=== PATIENT | female | born 1975 | race Caucasian/White ===

== ENCOUNTER 2022-05-04 10:27 | Outpatient (CLI) | payer BC, SELFPAY ==
--- NOTE | 2022-05-04 10:45 | CRLHL7_ITS ---
For Patients: As a result of the Century Cures Act, medical imaging exams and procedure reports are released immediately into your electronic medical record. You may view this report before your referring provider. If you have questions, please contact your health care provider. BILATERAL SCREENING MAMMOGRAM WITH COMPUTER-AIDED DETECTION AND TOMOSYNTHESIS TECHNIQUE: CC and MLO views were obtained. These mammographic images have been obtained using full-field digital technique. These mammographic images were interpreted with the benefit of computer-aided detection. Breast Tomosynthesis was used in this interpretation. COMPARISON FILM: 04/21/21, 05/16/20, 07/18/18. FINDINGS: There are scattered areas of fibroglandular density IMPRESSION: There is no radiographic evidence for malignancy. ASSESSMENT: BI-RADS Category 1: Negative RECOMMENDATION: Routine screening mammogram in 1 year. A lay language report of this examination will be provided to the patient. Ashu Aberu M.D. Diagnostic Radiologist [email or web address] JAMA/Dictated by: Ashu Abreu MD @ 05/04/2022 11:32:00 AM (Electronically Signed)
== END 2022-05-04 10:28 | disposition home or self-care (01) ==
PROVIDERS: PCP Obstetrics & Gynecology; Visit Provider Obstetrics & Gynecology
DX: Z12.31 Encounter for screening mammogram for malignant neoplasm of breast (principal)
CPT/HCPCS: 77063; 77067

== ENCOUNTER 2022-05-25 13:54 | Outpatient (CLI) | payer BC, SELFPAY ==
[2022-05-25 17:45] LABS: Glucose* 87 mg/dL (60-115)
== END 2022-05-25 13:55 | disposition home or self-care (01) ==
PROVIDERS: PCP Obstetrics & Gynecology; Visit Provider Obstetrics & Gynecology
DX: Z01.419 Encounter for gynecological examination (general) (routine) without abnormal findings (principal)
CPT/HCPCS: 82947

== ENCOUNTER 2023-02-28 10:38 | Emergency (ER) | payer BC, SELFPAY ==
[2023-02-28 10:51] VITALS: BP 164/93; PULSE 94; RESP 18; TEMP 36.2; O2SAT 99; BMI 41.5
--- NOTE | 2023-02-28 11:03 | CRLHL7_ITS ---
For Patients: As a result of the Century Cures Act, medical imaging exams and procedure reports are released immediately into your electronic medical record. You may view this report before your referring provider. If you have questions, please contact your health care provider. INDICATION: REDNESS AND SWELLING COMPARISON: None. TECHNIQUE: A compression venous ultrasound exam was performed of the right lower extremity using garibay-scale imaging, color Doppler and spectral Doppler analysis. FINDINGS: Sonographic imaging of the right lower extremity demonstrates normal compressibility and color Doppler venous blood flow within the common femoral vein, deep femoral vein, and the proximal greater saphenous vein. Within the thigh, the femoral vein is patent and compressible. At a lower level, the popliteal and posterior tibial veins also show normal compressibility and color Doppler venous blood flow. Limited imaging of the contralateral groin demonstrates a normal spectral waveform and color Doppler venous blood flow within the left common femoral vein. IMPRESSION: Normal venous ultrasound exam. No evidence of deep vein thrombosis within the right lower extremity. Dictated by Ashu Abreu MD @ 02/28/2023 12:33:52 PM (Electronically Signed)
--- NOTE | 2023-02-28 11:05 | ED.GENADULT ---
HPI - General Adult General Time Seen by Provider: 11:05 Date Seen: 02/28/23 Chief complaint: Extremity Pain/Injury, Lower Stated complaint: Possible blood clot Time Seen by Provider: 02/28/23 11:03 Source: patient Mode of arrival: ambulatory Limitations: no limitations History of Present Illness HPI narrative: Martha is a 47-year-old female with no past medical history presents emerged department via private car with a low right lower extremity injury. Patient states she woke up this morning with some increased redness to her right lower extremity, there was some warmth to the area, patient denies any injury, pain started early in the morning last night. Yesterday she was just standing and cooking in the kitchen. Patient denies any shortness of breath or chest pain, no long travel, no history of any DVTs in the past. She did have some sweats last night but denies any fevers or chills. Patient has not taken anything for pain. Related Data Home Medications Medication Instructions Recorded Confirmed multivitamin 1 tab PO QAM 05/25/22 01/01/23 Previous Rx's Medication Instructions Recorded peg 3350-electrolytes 236 240 ml PO Q15M #4,000 mL 10/03/22 gram-22.74 gram-6.74 gram-5.86 gram solution (Golytely) peg 3350-electrolytes 236 240 ml PO ONCE #4,000 mL 10/29/22 gram-22.74 gram-6.74 gram-5.86 gram solution (Golytely) cefadroxil 500 mg capsule 500 mg PO BID 7 days #14 caps 02/28/23 Allergies Allergy/AdvReac Type Severity Reaction Status Date / Time latex Allergy Intermediate itching Verified 01/01/23 13:09 [facility] Medical History Conjunctivitis, right eye ?H10.9 - Unspecified conjunctivitis (ICD-10) Sore throat ?J02.9 - Acute pharyngitis, unspecified (ICD-10) Surgical History (Updated 05/25/22 @ 14:07 by Munira Barboza MD) History of mandibular surgery (1993) ?Z98.890 - Other specified postprocedural states (ICD-10) History of back surgery (10/2005) ?Z98.890 - Other specified postprocedural states (ICD-10) History of section ?Z98.891 - History of uterine scar from previous surgery (ICD-10) Family History (Updated 05/25/22 @ 14:09 by Munira Barboza MD) Father High cholesterol Prostate cancer High blood pressure Pancreatic cancer Aunt Breast cancer, Onset Age: 50 Social History (Updated 05/25/22 @ 14:12 by Munira Barboza MD) Narrative: Employed as financial counselor, with 2 children Highest level of school completed/degree received: Bachelor's degree Smoking Status: Never smoker How often do you have a drink containing alcohol: 4 or more times a week How many standard drinks containing alcohol do you have on a typical day: 5 or 6 How often do you have six or more drinks on one occasion: Daily or almost daily AUDIT-C Alcohol total score: 10 Non-prescribed substance use: denies use Are you now , , , , never or living with a partner: Social isolation score (0-1 are the most socially isolated patients): 1 Little interest or pleasure in doing things: several days Feeling down, depressed, or hopeless: several days Feel stressed/tense/nervous/anxious/difficulty sleeping: very much Do you think of yourself as: straight/heterosexual Gender Identity: female Are you currently sexually active: Yes Are you using contraception or practicing any form of control: Yes (Partner vasectomy) Exam Narrative: Exam Narrative: General: No obvious distress sitting comfortably HEENT: Pupils equal round reactive to light, extraocular muscles intact Neck: Supple full range of motion Heart: Normal sinus rhythm S1-S2 Lungs: Clear to auscultation bilateral Abdomen: Soft nontender Muscle skeletal: Posterior right lower extremity, area of erythema measuring 10 x 10 cm, slight warmth, no induration or fluctuance, tender to palpation Mild circumferential swelling, CMS intact Neuro: Alert awake and oriented x3 Const: Vital Signs, click to edit/add: Vital Signs - 24 hr 02/28/23 10:51 Temperature 97.1 F L Pulse Rate [Right Pulse Oximeter] 94 Respiratory Rate 18 Blood Pressure [Ri ght Upper Arm] 164/93 H Pulse Oximetry 99 Oxygen Delivery Me thod Room Air Course Course ED Course: 11:30 AM: AIDET performed, workup will include CBC, BMP and CRP, will obtain US lower extremity right, rule out DVT less likely or superficial thrombophlebitis, seems more related to cellulitis. Patient does not want anything for pain. Reevaluation(s) Time of Reevaluation #1: 12:42 Reevaluation #1: IMPRESSION: Normal venous ultrasound exam. No evidence of deep vein thrombosis within the right lower extremity. Imaging showed no evidence of deep vein thrombosis, labs showed a normal CBC, no leukocytosis, chronic anemia, CRP mildly elevated at 1.3, metabolic panel within normal limits, plan would be to treat with Duricef 500 mg b.i.d. over the next 7 days, she should continue with elevation compression to the area, follow-up with primary care provider. Vital Signs Vital signs: Initial Vital Signs Temperature 97.1 F L 02/28/23 10:51 Temperature Source Temporal Artery Scan 02/28/23 10:51 Pulse Rate 94 02/28/23 10:51 Respiratory Rate 18 02/28/23 10:51 Blood Pressure 164/93 H 02/28/23 10:51 Blood Pressure Mean 116 H 02/28/23 10:51 Blood Pressure Position Sitting 02/28/23 10:51 Pulse Oximetry 99 02/28/23 10:51 Oxygen Delivery Method Room Air 02/28/23 10:51 Vital Signs Temperature 97.1 F L 02/28/23 10:51 Pulse Rate 94 02/28/23 10:51 Respiratory Rate 18 02/28/23 10:51 Blood Pressure 164/93 H 02/28/23 10:51 Pulse Oximetry 99 02/28/23 10:51 Oxygen Delivery Method Room Air 02/28/23 10:51 Temperature 97.1 F L 02/28/23 10:51 Pulse Rate 94 02/28/23 10:51 Respiratory Rate 18 02/28/23 10:51 Blood Pressure 164/93 H 02/28/23 10:51 Pulse Oximetry 99 02/28/23 10:51 Oxygen Delivery Method Room Air 02/28/23 10:51 Medical Decision Making Lab Data Labs: Lab Results 02/28/23 Range/Units 11:26 WBC 8.53 (4.50-11.00) K/uL RBC 4.86 (4.00-5.20) m/uL Hgb 11.5 L (12.0-16.0) gm/dL Hct 38.0 (33.0-51.0) % MCV 78 L (80-100) fL MCH 24 L (26-34) pg MCHC 30 L (32-36) gm/dL RDW Coeff of Shelly 14.6 (11.5-15.5) % Plt Count 382 (140-440) K/uL Neut % (Auto) 72.0 (42.0-72.0) % Lymph % (Auto) 13.0 L (20-44) % Mcculloch % (Auto) 10.8 (0.0-11.0) % Eos % (Auto) 3.2 (0.0-7.0) % Baso % (Auto) 0.9 (0.0-3.0) % Neut # (Auto) 6.14 (1.7-7.0) K/uL Lymph # (Auto) 1.10 (0.90-2.90) K/uL Mcculloch # (Auto) 0.90 (0.00-0.90) K/UL Eos # (Auto) 0.27 (0.00-0.50) K/uL Baso # (Auto) 0.08 (0.00-0.30) K/uL Abs Immat Gran (auto) 0.01 (0.00-0.30) K/uL Imm/Tot Granulo (auto) 0.1 % Sodium 138 (135-149) mmol/L Potassium 3.9 (3.6-5.1) mmol/L Chloride 104 (96-114) mmol/L Carbon Dioxide 30 (20-32) mmol/L Anion Gap 4 L (7-15) mEq/L BUN 8 (5-24) mg/dL Creatinine 0.9 (0.5-1.5) mg/dL Estimated Creat Clear 75.95 Estimated GFR 80 ml/min Glucose 94 (60-115) mg/dL Calcium 9.3 (8.4-10.6) mg/dL C-Reactive Protein 1.3 H (0.5-1.0) mg/dL Discharge Plan Discharge Clinical Impression: Cellulitis of right lower limb Patient Disposition: Home, Self-Care Condition: Improved Instructions: Cellulitis (ED) Additional Instructions: Take Duricef 500 mg twice daily over the next 7 days. Keep area elevated, compression, follow up with primary care provider over the next 7-10 days, return if worsening symptoms. Activity Level: No Restrictions Prescriptions: New cefadroxil 500 mg capsule 500 mg PO BID 7 Days Qty: 14 0RF No Action multivitamin Tablet 1 tab PO QAM peg 3350-electrolytes [Golytely] 236-22.74-6.74 -5.86 gram recon soln 240 ml PO Q15M Qty: 4000 0RF Rx Instructions: until fecal effluent is clear peg 3350-electrolytes [Golytely] 236-22.74-6.74 -5.86 gram recon soln 240 ml PO ONCE Qty: 4000 0RF Rx Instructions: 4pm day prior to procedure. Drink 8oz every 15 minutes until 1/2 of solution is gone. 6 hours prior to procedure drink 8oz glass every 15 minutes until the remaining solution is gone. Follow Up/Referrals: Munira Barboza MD [Primary Care Provider] - Stand Alone Forms: [employer] Info Instructions
[2023-02-28 11:34] LABS: Basophils Absolute Auto 0.08 K/uL (0.00-0.30); Basophils Percent Auto 0.9 % (0.0-3.0); Eosinophils Absolute Auto 0.27 K/uL (0.00-0.50); Eosinophils Percent Auto 3.2 % (0.0-7.0); Hemoglobin* 11.5 gm/dL (12.0-16.0); Immature Granulocytes Abs Auto 0.01 K/uL (0.00-0.30); Immature Granulocytes Pct Auto 0.1 %; Mean Corpuscular HGB Conc 30 gm/dL (32-36); Mean Corpuscular Hemoglobin 24 pg (26-34); Mean Corpuscular Volume 78 fL (80-100); Monocytes Percent Auto 10.8 % (0.0-11.0); Neutrophils Absolute Auto 6.14 K/uL (1.7-7.0); Platelet Count* 382 K/uL (140-440); RDW Coefficient of Variation % 14.6 % (11.5-15.5); Red Blood Count 4.86 m/uL (4.00-5.20); White Blood Count* 8.53 K/uL (4.50-11.00)
[2023-02-28 11:45] LABS: Slide Review Reflex No
[2023-02-28 11:54] LABS: Chloride* 104 mmol/L (96-114); Potassium* 3.9 mmol/L (3.6-5.1); Sodium* 138 mmol/L (135-149)
[2023-02-28 11:57] LABS: Anion Gap 4 mEq/L (7-15); Blood Urea Nitrogen* 8 mg/dL (5-24); Carbon Dioxide* 30 mmol/L (20-32); Creatinine* 0.9 mg/dL (0.5-1.5); Est. Creatinine Clearance* 75.95; Estimated Glomerular Filt Rate 80 ml/min
[2023-02-28 11:58] LABS: Calcium* 9.3 mg/dL (8.4-10.6); Glucose* 94 mg/dL (60-115)
[2023-02-28 12:00] LABS: C Reactive Protein* 1.3 mg/dL (0.5-1.0)
[2023-02-28] MEDS: cefTRIAXone 1 GM VIAL IM (13:05)
[2023-02-28] MEDS: LIDOCAINE 1% 5 ml (pf) 5 ML VIAL 2.1 ML IM (13:06)
== END 2023-02-28 13:28 | disposition home or self-care (01) ==
PROVIDERS: Emergency Provider Student in an Organized Health Care Education/Training Program; PCP Obstetrics & Gynecology
DX: L03.115 Cellulitis of right lower limb (principal)
CPT/HCPCS: 36415; 80048; 85025; 86140; 93971; 96372; 99283; 99284; J0696

== ENCOUNTER 2023-05-27 12:51 | Outpatient (CLI) | payer BC, SELFPAY | END 2023-05-27 12:52 | disposition home or self-care (01) | LOC: LKVREF 12:53 | PROVIDERS: PCP Obstetrics & Gynecology; Visit Provider Physician Assistant | DX: Z01.419 Encounter for gynecological examination (general) (routine) without abnormal findings (principal); E66.9 Obesity, unspecified; Z13.1 Encounter for screening for diabetes mellitus; Z13.6 Encounter for screening for cardiovascular disorders | CPT/HCPCS: 80061; 82947 ==

== ENCOUNTER 2023-06-06 15:28 | Outpatient (CLI) | payer BC, SELFPAY ==
--- NOTE | 2023-06-06 15:40 | CRLHL7_ITS ---
For Patients: As a result of the Century Cures Act, medical imaging exams and procedure reports are released immediately into your electronic medical record. You may view this report before your referring provider. If you have questions, please contact your health care provider. BILATERAL SCREENING MAMMOGRAM WITH COMPUTER-AIDED DETECTION AND TOMOSYNTHESIS TECHNIQUE: CC and MLO views were obtained. These mammographic images have been obtained using full-field digital technique. These mammographic images were interpreted with the benefit of computer-aided detection. Breast Tomosynthesis was used in this interpretation. COMPARISON FILM: 05/04/22, 04/21/21, 04/15/20. FINDINGS: There are scattered areas of fibroglandular density IMPRESSION: There is no radiographic evidence for malignancy. ASSESSMENT: BI-RADS Category 1: Negative RECOMMENDATION: Routine screening mammogram in 1 year. A lay language report of this examination will be provided to the patient. Ashu Abreu M.D. Diagnostic Radiologist [email or web address] JAMA/Dictated by: Ashu Abreu MD @ 06/11/2023 1:10:00 PM (Electronically Signed)
== END 2023-06-06 15:29 | disposition home or self-care (01) ==
LOC: MAMMO 15:29
PROVIDERS: PCP Obstetrics & Gynecology; Visit Provider Physician Assistant
DX: Z12.31 Encounter for screening mammogram for malignant neoplasm of breast (principal)
CPT/HCPCS: 77063; 77067

== ENCOUNTER 2024-01-02 09:13 | Outpatient (CLI) | payer OTHER, SELFPAY ==
--- NOTE | 2024-01-02 09:42 | W.ANESCHARGE ---
Anesthesia Charges Start Date/Time Anesthesia Start Date: 01/02/24 Anesthesia Start Time: 10:00 Stop Date/Time Anesthesia Stop Date: 01/02/24 Anesthesia Stop Time: 10:32
--- NOTE | 2024-01-02 10:36 | W.ANESCHARGE ---
Anesthesia Charges Start Date/Time Anesthesia Start Date: 01/02/24 Anesthesia Start Time: 10:00 Stop Date/Time Anesthesia Stop Date: 01/02/24 Anesthesia Stop Time: 10:32
== END 2024-01-02 09:14 | disposition home or self-care (01) ==
LOC: OP CLINIC 09:14
PROVIDERS: PCP Obstetrics & Gynecology; Visit Provider Surgery
DX: Z12.11 Encounter for screening for malignant neoplasm of colon (principal); Z86.010 Personal history of colon polyps
CPT/HCPCS: G0105; 00811; 00812; J2405; J2704

== ENCOUNTER 2024-06-22 11:10 | Outpatient (CLI) | payer OTHER, SELFPAY ==
[2024-06-25 01:22] LABS: HPV Source Cervix; HPV, High Risk by TMA Not Detected
== END 2024-06-22 11:11 | disposition home or self-care (01) ==
PROVIDERS: Visit Provider Physician Assistant
DX: F10.10 Alcohol abuse, uncomplicated (principal); Z12.4 Encounter for screening for malignant neoplasm of cervix; Z13.1 Encounter for screening for diabetes mellitus; Z13.6 Encounter for screening for cardiovascular disorders; Z11.51 Encounter for screening for human papillomavirus (HPV)
CPT/HCPCS: 80061; 80076; 82947; 87624; 87625; 88141; 88142

== ENCOUNTER 2024-09-11 13:48 | Outpatient (CLI) | payer OTHER, SELFPAY ==
--- NOTE | 2024-09-11 14:00 | MM_ITS ---
Patient: JOSEFINA HERR Facility:?[facility] Patient ID:?[id number] Site Patient ID:?[id number]. Site :?[id number] Study:?XRay-Breast Bilateral 3D w/CAD-09/11/2024 2:21:23 PM Ordering Physician:Janene September Final Report: BILATERAL SCREENING MAMMOGRAM WITH COMPUTER-AIDED DETECTION AND TOMOSYNTHESIS TECHNIQUE: CC and MLO views were obtained. These mammographic images have been obtained using full-field digital technique. These mammographic images were interpreted with the benefit of computer-aided detection. Breast Tomosynthesis was used in this interpretation. COMPARISON FILM: 06/06/23, 05/04/22. FINDINGS: The breasts are heterogeneously dense, which may obscure small masses. IMPRESSION: There is no radiographic evidence for malignancy. ASSESSMENT: BI-RADS Category 1: Negative RECOMMENDATION: Routine screening mammogram in 1 year. A lay language report of this examination will be provided to the patient. Ashu Abreu M.D. Diagnostic Radiologist [email or web address] DSM/sp R& Transcribed: 3:17 p.m. SP/Dictated by: Ashu Abreu MD @ 09/17/2024 10:41:00 AM (Electronic Signature)
== END 2024-09-11 13:49 | disposition home or self-care (01) ==
LOC: MAMMO 13:48
PROVIDERS: Visit Provider Physician Assistant
DX: Z12.31 Encounter for screening mammogram for malignant neoplasm of breast (principal); R92.333 Mammographic heterogeneous density, bilateral breasts
CPT/HCPCS: 77063; 77067